=== PATIENT | male | born 1955 | race Caucasian/White ===

== ENCOUNTER 2022-12-04 10:58 | Outpatient (AMB) | payer OTHER, SELFPAY ==
[2022-12-04 11:17] VITALS: BMI 29.9
--- NOTE | 2022-12-04 11:17 | A.OFFVIS_ITS ---
Intake VS Expanded 12/04/22 11:17 12/11/22 11:04 Height 5 ft 11 in 5 ft 11 in Weight 214 lb 11.684 oz 215 lb BMI 29.9 30.0 Intake Visit Reasons: Obesity Allergies bee pollen [BEE STINGS] Allergy (Unknown, Unverified 01/15/20 15:12) ANAPHYLAXIS ENVIROMENTAL Allergy (Unknown, Uncoded 01/15/20 15:12) NASAL CONGESTION, ASTHMA HPI Nutrition Presentation Details Pt presents for MNT for obesity . The Pt was referred by primary care provider Leah Husain PA-C Pt reports working on making diet modifications , he reports he was 220 lbs a couple of months ago.. Food frequency questionnaire: fruits/day : 1 veg: veg juice , non starchy veg 0-1/d dairy: 2-3 serving/d protein: poultry/beef/eggs/fish : 10 oz/d starches > 18 serving/d fried foods: 0-2/m beverages: water, milk, juice 52 oz/d physical activity: daily life activities ETOH/SMoking--- QFI-Xyxjpnj-Nj.Jeor Equation Height 5 ft 11 in Weight 215 lb Resting Metabolic Rate 1786.57 Calculated Activity Level Sedentary Calories Needed to Maintain Weight 2143.88 Diagnosis Nutrition problem #1 food nutri know defi As related to (etiology) #1 diagnosis As evidenced by (sign/symptom) #1 high BMI (29.9 on 12/04/22) Most Recent Diabetes Results: No Data to Display Assessment & Plan Assessment & Plan (1) Obesity: Code(s): E66.9 - Obesity, unspecified Plan: wt used: 98 kg Est kcal needs as per MSJ: 2100 (40% carb, 30% protein/fat) Est fluid needs as per 25-30 ml/d: 2443- 2900 Est prot per day as per 1 g/kg bw: 98 Recommend fiber intake : 8-10 g per day and gradually increase to 25-28 g per day for women and 35-38 g for men or as tolerated Recommend sodium intake per day : less than 2000 mg Educated patient on: ( R = reviewed V = verbalizes understanding N/R = needs review N/A = not applicable * Food sources of carbohydrate, adequate serving sizes and its role in various health conditions: R * Differences between complex carbohydrates a simple carbohydrates, role of fiber in diet: R * Differences between types of fats and role in diet (mono on saturated fat fatty acids, saturated fatty acids, trans fats): R * Food sources of sodium in salt and healthy modifications for heart health in kidney health: R * Vitamins and minerals: R * Healthy plate method concept: R * Physical activity: Benefits a precaution: R Patient Instructions: Follow healthy plate method at dinner Reduce on sugar/total carb at dinner to 60-75 g following healthyp lat emethod Practice mindful eating Coding Level of Care Code Nutr Indiv Intake (85589) Diagnoses Obesity E66.9 Time Spent (min) 30
== END 2022-12-04 11:48 | disposition home or self-care (01) ==
PROVIDERS: PCP Internal Medicine; Visit Provider Dietitian, Registered
DX: E66.9 Obesity, unspecified (principal)

== ENCOUNTER → 2022-12-04 10:58 | Outpatient (BNVA) | payer OTHER, SELFPAY | PROVIDERS: PCP Internal Medicine; Visit Provider Dietitian, Registered | DX: E66.9 Obesity, unspecified (principal); Z68.30 Body mass index [BMI] 30.0-30.9, adult; Z71.3 Dietary counseling and surveillance | CPT/HCPCS: 97802 ==

== ENCOUNTER 2023-05-09 09:58 | Outpatient (AMB) | payer OTHER, SELFPAY ==
[2023-05-09 10:02] VITALS: BMI 30.1
--- NOTE | 2023-05-09 10:02 | A.OFFVIS_ITS ---
Intake VS Expanded 05/09/23 10:02 Height 5 ft 11 in Weight 216 lb 0.848 oz BMI 30.1 Intake Visit Reasons: Obesity/LVM Allergies bee pollen [BEE STINGS] Allergy (Unknown, Unverified 01/15/20 15:12) ANAPHYLAXIS ENVIROMENTAL Allergy (Unknown, Uncoded 01/15/20 15:12) NASAL CONGESTION, ASTHMA HPI Nutrition Presentation Details Pt presents for MNT f/u obesity Pt reports not having a meal routine and finds himself snacking. goal weight 200 lbs Most Recent Diabetes Results: No Data to Display Assessment & Plan Assessment & Plan (1) Obesity: Code(s): E66.9 - Obesity, unspecified Plan: wt used: 98 kg Est kcal needs as per MSJ: 2100 (40% carb, 30% protein/fat) Est fluid needs as per 25-30 ml/d: 2443- 2900 Est prot per day as per 1 g/kg bw: 98 Recommend fiber intake : 8-10 g per day and gradually increase to 25-28 g per day for women and 35-38 g for men or as tolerated Recommend sodium intake per day : less than 2000 mg Educated patient on: ( R = reviewed V = verbalizes understanding N/R = needs review N/A = not applicable * Food sources of carbohydrate, adequate serving sizes and its role in various health conditions: R * Differences between complex carbohydrates a simple carbohydrates, role of fiber in diet: R * Differences between types of fats and role in diet (mono on saturated fat fatty acids, saturated fatty acids, trans fats): R * Food sources of sodium in salt and healthy modifications for heart health in kidney health: R * Vitamins and minerals: R * Healthy plate method concept: R * Physical activity: Benefits a precaution: R Patient Instructions: Have scheduled meals , 3 meals a day following healthy plate method instead of increased snacks Engage in walking walk 30 minutes daily Coding Level of Care Code Nutr Indiv Subseq (51285) Diagnoses Obesity E66.9 Time Spent (min) 30
== END 2023-05-09 10:56 | disposition home or self-care (01) ==
PROVIDERS: PCP Internal Medicine; Visit Provider Dietitian, Registered
DX: E66.9 Obesity, unspecified (principal)

== ENCOUNTER → 2023-05-09 09:58 | Outpatient (BNVA) | payer OTHER, SELFPAY | PROVIDERS: PCP Internal Medicine; Visit Provider Dietitian, Registered | DX: E66.9 Obesity, unspecified (principal); Z68.30 Body mass index [BMI] 30.0-30.9, adult; Z71.3 Dietary counseling and surveillance | CPT/HCPCS: 97803 ==